=== PATIENT | female | born 2000 ===

== ENCOUNTER 2018-05-16 15:11 | Outpatient (REF) | payer MEDICAID, SELFPAY ==
[2018-05-16 22:24] LABS: Abs Immature Grans 0.02 k/cumm (0.0-0.09); Absolute Basophil Count 0.03 k/cumm (0.0-0.2); Absolute Eosinophil Count 0.05 k/cumm (0.0-0.7); Absolute Lymphocyte Count 1.54 k/cumm (1.2-3.4); Absolute Monocyte Count 0.56 k/cumm (0.11-0.7); Absolute Neutrophil Count 4.27 k/cumm (1.2-6.7); Basophils % 0.5; Eosinophils % 0.8; HCT 40.4 % (36.0-46.0); HGB 13.6 g/dL (12.0-15.5); Immature Grans % 0.3; Lymphocytes % 23.8; Mean Corp. HGB Concentration 33.7 g/dL (32.0-36.0); Mean Platelet Volume 10.2 fL (8.0-11.0); Monocytes % 8.7; Neutrophils % 65.9; Platelet Count 264 x1000/uL (130-400); RBC 4.54 m/cumm (4.00-5.20); RBC Distribution Width 13.3 % (11.7-14.6); White Blood Cell Count 6.47 k/cumm (4.4-10.8)
[2018-05-16 22:45] LABS: ALT 19 U/L (12-78); AST 12 U/L (15-37); Albumin 4.1 g/dL (3.4-5.0); Alkaline Phosphatase 52 U/L (46-116); Anion Gap 8.9 mmol/L (3-11); BUN 9 mg/dL (7-18); Bilirubin, Total 0.4 mg/dL (0.2-1.0); CO2 24.1 mmol/L (21.0-32.0); CREATININE 0.85 mg/dL (0.55-1.02); Calcium 8.6 mg/dL (8.5-10.1); Chloride 105 mmol/L (98-107); Glucose 81 mg/dL (70-100); Lipase 112 U/L (73-393); Potassium 3.5 mmol/L (3.5-5.1); Sodium 138 mmol/L (136-145); TSH 1.39 uIU/mL (0.358-3.74); Total Protein 7.3 g/dL (6.4-8.2)
[2018-05-16 22:47] LABS: HCG Quant, Pregnancy < 1 mIU/mL (1-3)
[2018-05-18 13:31] LABS: HIV-1/2 Ag & Ab Screen Negative (NEGAT)
[2018-05-18 14:55] LABS: Chlamydia Result Negative; GC Result Negative; Specimen Description VAGINAL
== END 2018-05-16 15:31 ==
LOC: NCHCN 15:11
PROVIDERS: PCP Registered Nurse; Visit Provider Registered Nurse
DX: N91.2 Amenorrhea, unspecified (principal); M54.5 Low back pain; R82.90 Unspecified abnormal findings in urine; R11.0 Nausea; R63.4 Abnormal weight loss; R19.7 Diarrhea, unspecified; Z11.4 Encounter for screening for human immunodeficiency virus [HIV]; Z11.3 Encounter for screening for infections with a predominantly sexual mode of transmission
CPT/HCPCS: 80053; 83690; 87077; 87389; 87491; 87591; 84443; 84702; 85025; 87086; 87186

== ENCOUNTER 2020-01-13 10:19 | Outpatient (REF) | payer MEDICAID, SELFPAY ==
[2020-01-13 21:04] LABS: Abs Immature Grans 0.01 k/cumm (0.0-0.09); Absolute Basophil Count 0.01 k/cumm (0.0-0.2); Absolute Eosinophil Count 0.06 k/cumm (0.0-0.7); Absolute Lymphocyte Count 1.11 k/cumm (1.2-3.4); Absolute Monocyte Count 0.52 k/cumm (0.11-0.7); Absolute Neutrophil Count 2.58 k/cumm (1.2-6.7); Basophils % 0.2; Eosinophils % 1.4; HCT 39.5 % (36.0-46.0); HGB 13.4 g/dL (12.0-15.5); Immature Grans % 0.2 %; Lymphocytes % 25.9; Mean Corp. HGB Concentration 33.9 g/dL (32.0-36.0); Mean Corpuscular Hemoglobin 29.2 pg (27.0-33.0); Mean Corpuscular Volume 86.1 fL (80-95); Mean Platelet Volume 10.3 fL (8.0-11.0); Monocytes % 12.1; Neutrophils % 60.2; Platelet Count 262 x1000/uL (130-400); RBC 4.59 m/cumm (4.00-5.20); RBC Distribution Width 14.5 % (11.7-14.6); White Blood Cell Count 4.29 k/cumm (4.4-10.8)
[2020-01-13 21:13] LABS: ALT 24 U/L (14-59); AST 15 U/L (15-37); Albumin 4.5 g/dL (3.4-5.0); Alkaline Phosphatase 44 U/L (46-116); Anion Gap 10.5 mmol/L (3-11); BUN 6 mg/dL (7-18); Bilirubin, Total 0.7 mg/dL (0.2-1.0); CO2 24.5 mmol/L (21.0-32.0); CREATININE 0.97 mg/dL (0.55-1.02); Calcium 9.7 mg/dL (8.5-10.1); Chloride 104 mmol/L (98-107); Glucose 94 mg/dL (74-106); Lipase 76 U/L (73-393); Potassium 3.3 mmol/L (3.5-5.1); Sodium 139 mmol/L (136-145); TSH 1.06 uIU/mL (0.36-3.74); Total Protein 7.5 g/dL (6.4-8.2)
== END 2020-01-13 10:39 ==
LOC: NCHCN 10:19
PROVIDERS: PCP Registered Nurse; Visit Provider Nurse Practitioner Family
DX: R63.4 Abnormal weight loss (principal); K30 Functional dyspepsia
CPT/HCPCS: 80053; 83690; 84443; 85025

== ENCOUNTER 2021-05-03 17:29 | Outpatient (REF) | payer MEDICAID, SELFPAY ==
--- NOTE | 2021-05-03 16:30 | PAPFT_PTH ---
PATIENT: Geovanny Starr LOC: [facility] U#:[id number] AGE/SX: 21/F ROOM: RE05/03/[address]: Dahiana Saldivar : 2000 BED: DIS: 05/03/2021 SPEC #: [id number] RECD: 05/04/21 12:56 STATUS: WHITNEY ARZOLA #: [id number] BIENVENIDO: 05/03/21 16:[address]: Dahiana Swain DEPT: [facility] Cytology RECD BY: Valentina Londono ENTERED: 05/04/21 12:56 SP TYPE: PAPFT OT DR: Nissa Patel Tissues: 1 - CX/ENDOCX FOR PAP SMEARS Procedures: PAP THIN PREP/[facility] Screening Comments: [id number]
== END 2021-05-03 17:30 | disposition home or self-care (01) ==
LOC: LBN 17:29
PROVIDERS: PCP Registered Nurse; Visit Provider Nurse Practitioner Family
DX: Z12.4 Encounter for screening for malignant neoplasm of cervix (principal); Z00.00 Encounter for general adult medical examination without abnormal findings
CPT/HCPCS: 88142